=== PATIENT | female | born 1950 | race Caucasian/White ===

== ENCOUNTER 2016-05-06 16:49 | Emergency (ER) | payer OTHER ==
[~2016-05-06] VITALS: Ht 154.9 cm; Wt 103.7 kg
[~2016-05-06 16:49] MED LIST: AMARYL4 MG PO; AUGMENTIN875 MG PO; CIPROFLOXACIN500 M1 PO; CLEOCIN300 MG PO; COUMADIN,JANTO7.5 MG PO; COUMADIN5 MG PO; COUMADIN7.5 MG PO; DICLOXACILLIN500 MG PO; DIGOX250 MCG PO; FUROSEMIDE40 MG PO; GLIMEPIRIDE4 MG PO; GLUCOPHAGE1000 MG PO; JANTOVEN5 MG PO; JANTOVEN6 M1 PO; LANOXIN250 MCG PO; LASIX40 MG PO; LIPITOR80 MG PO; LISINOPRIL40 MG PO; METFORMIN HCL1000 MG PO; METOPROLOL SUCC50 MG PO; METOPROLOL TART50 MG PO; PREDNISONE20 MG PO; TYLENOL EXTRA500 MG PO; WARFARIN SODIUM5 MG PO; WARFARIN SODIUM6 MG PO; ZESTRIL40 M1 PO
[2016-05-06 18:44] LABS: HEMATOCRIT 43.3 % (36.0-46.0); MCH 29.9 PG (29.0-34.0); MCHC 32.6 G/DL (30.0-36.0); MCV 91.9 FL (83-99); MEAN PLAT.VOLUME 11.9 uM^3 (9.5-12.4); PLATELET COUNT 134 K/uL (156-360); RBC DIS.WIDTH-CV 15.1 % (11.8-14.6); RBC DIS.WIDTH-SD 49.3 % (39-53); RED BLOOD COUNT 4.71 M/uL (3.80-5.20); WHITE BLOOD COUNT 11.7 K/uL (4.1-10.2)
[2016-05-06 18:59] LABS: CHLORIDE 102 mEq/L (99-109); POTASSIUM 4.4 mEq/L (3.7-5.4); SODIUM 143 mEq/L (136-147)
[2016-05-06 19:00] LABS: INTER. NORMALIZED RATIO 2.3; PROTHROMBIN TIME 23.8 (9.2-11.2); PTT 43.8 (25-32)
[2016-05-06 19:01] LABS: GLUCOSE 79 mg/dL (70-99)
[2016-05-06 19:02] LABS: ANION GAP 10 MEQ/L (2-14)
[2016-05-06 19:03] LABS: TOTAL BILIRUBIN 0.8 mg/dL (0.0-1.0)
[2016-05-06 19:04] LABS: ALKALINE PHOSPHATASE 83 IU/L (3-129)
[2016-05-06 19:05] LABS: GFR ESTIMATE (CALCULATED) > 59 mL/min/
[2016-05-06 19:06] LABS: UREA NITROGEN (BUN) 18 mg/dL (9-23)
[2016-05-06] MEDS ORDERED: CLEOCIN300 MG PO (20:42)
[2016-05-06 20:55] VITALS: BP 133/76
== END 2016-05-06 20:59 | disposition home or self-care (01) ==
LOC: EME 16:49
PROVIDERS: Nurse Practitioner Family
DX: L03.116 Cellulitis of left lower limb (principal); E11.9 Type 2 diabetes mellitus without complications; I73.9 Peripheral vascular disease, unspecified; E78.5 Hyperlipidemia, unspecified; I10 Essential (primary) hypertension; F17.200 Nicotine dependence, unspecified, uncomplicated; Z79.84 Long term (current) use of oral hypoglycemic drugs; Z79.01 Long term (current) use of anticoagulants
CPT/HCPCS: 80053; 83605; 85027; 85610; 85730; 87040; 99281; 99284; J0692; J3370; J7050

== ENCOUNTER 2016-09-16 17:23 | Emergency (ER) | payer OTHER ==
[~2016-09-16] VITALS: Ht 154.9 cm; Wt 103.8 kg
[2016-09-16] MEDS ORDERED: WARFARIN SODIU7.5 MG PO (17:52)
[2016-09-16] MEDS ORDERED: BACTRIM,SEPT1 TABLET PO (17:54)
[2016-09-16] MEDS ORDERED: PERCOCET 5/31 TABLET PO (17:54)
[2016-09-16] MEDS ORDERED: KEFLEX500 MG PO (17:54)
[2016-09-16 18:27] VITALS: BP 146/73
== END 2016-09-16 18:28 | disposition home or self-care (01) ==
LOC: EME 17:23
PROC: 0H9FXZZ Drainage of Right Hand Skin, External Approach (ICD-10-PCS; principal; 2016-09-16)
DX: L02.511 Cutaneous abscess of right hand (principal); I10 Essential (primary) hypertension; E11.9 Type 2 diabetes mellitus without complications; Z79.84 Long term (current) use of oral hypoglycemic drugs; Z79.01 Long term (current) use of anticoagulants; F17.200 Nicotine dependence, unspecified, uncomplicated
CPT/HCPCS: 99281; 99284

== ENCOUNTER → 2016-10-13 | Outpatient (CLI) | payer MEDICARE, OTHER ==
[~2016-10-13] MED LIST changes: +BACTRIM,SEPT1 TABLET PO; +KEFLEX500 MG PO; +PERCOCET 5/31 TABLET PO; +WARFARIN SODIU7.5 MG PO
== END | disposition home or self-care (01) ==
LOC: CDC 09:24
DX: M19.041 Primary osteoarthritis, right hand (principal); R94.31 Abnormal electrocardiogram [ECG] [EKG]
CPT/HCPCS: 93000